=== PATIENT | female | born 1980 | race Two or more races ===

== ENCOUNTER → 2025-02-22 | Outpatient (CLI) | payer MEDICAID, SELFPAY ==
--- NOTE | 2025-02-22 13:00 | XR_ITS ---
Examination: CTA brain, head with intravenous contrast. 2-D sagittal, coronal reconstructions. 3-D reconstructions. Exam date and time: February 22, 2025 1311 hours INDICATIONS: Headaches beginning 4 years ago CTDI: vol (mGy) 18.1 DLP: (mGycm) 359 Technique: Multiple CTA axial brain, head images post intravenous contrast injection 75 cc, [id number]. 2-D sagittal, coronal reconstructions. 3-D reconstructions, 3-D post processing including vascular maximum intensity projection images. Low dose protocols were performed. One or more of the following dose reduction techniques were used; automated exposure control, adjustment of the mA and/or KV according to patient size, use of iterative reconstruction technique. Findings: Satisfactory filling intracranial vertebral arteries basilar artery and posterior cerebral branches Satisfactory filling juxtasellar supraclinoid portions internal carotid arteries, M1 segments middle cerebral arteries middle cerebral artery trifurcation vessels and relatively poor filling of anterior cerebral arteries No large vessel occlusions No dissections or cerebral aneurysm is noted IMPRESSION: No cerebral large vessel arterial occlusions No cerebral artery aneurysms If new onset headaches persist, consider brain MRI MRA follow-up pre and postcontrast
== END | disposition home or self-care (01) ==
LOC: CCTX 12:38
PROVIDERS: PCP Family Medicine; Referring Provider Physician Assistant; Visit Provider Physician Assistant
DX: G43.909 Migraine, unspecified, not intractable, without status migrainosus (principal)
CPT/HCPCS: 70496; A4649; Q9967